=== PATIENT | female | born 1985 | race Caucasian/White ===

== ENCOUNTER 2017-11-03 18:23 | Emergency (ER) | payer MEDICAID ==
[2017-11-03 19:32] LABS: Urine Appearance Clear; Urine Blood Negative (Negative); Urine Color Yellow; Urine Ketones Negative (Negative); Urine Protein Negative (Negative); Urine Specific Gravity 1.026 (1.010-1.030); Urine Urobilinogen Negative (Negative)
[2017-11-03 19:37] LABS: ABS Basophils 0 10^3/ul (0-0.2); ABS Eosinophils 0.1 10^3/ul (0-0.6); ABS Lymphocytes 2.1 10^3/ul (1.0-4.8); ABS Monocytes 0.7 10^3/ul (0-0.8); ABS Neutrophils 6.3 10^3/ul (1.5-7.7); ABS Nucleated RBC 0 10^3/ul; Eosinophil % 0.9 % (0-6); Hematocrit 40 % (35-47); Hemoglobin 13.8 g/dl (12.0-16.0); Lymphocyte % 22.7 % (25-47); Mean Corpuscular HGB Conc 35 g/dl (31-36); Mean Corpuscular Hemoglobin 30 pg (27-31); Mean Corpuscular Volume 88 fL (80-97); Mean Platelet Volume 8.1 um3 (7.4-10.4); Nucleated Red Blood Cells % 0; Platelet Count 230 10^3/ul (150-450); Red Blood Count 4.56 10^6/ul (4.0-5.4); Red Cell Distribution Width 13 % (10.5-15); White Blood Count 9.2 10^3/ul (3.5-10.8)
[2017-11-03 19:53] LABS: EGFR Non-African American 78.1 (>60)
[2017-11-03] MEDS ORDERED: Zolpidem TAB* 10 MG PO ONE (20:43)
[2017-11-03] MEDS ORDERED: Cetirizine* 10 MG TAB PO SCH (22:00)
[2017-11-03] MEDS ORDERED: traZODone TAB* 100 MG PO SCH (22:00)
[2017-11-03] MEDS ORDERED: hydrOXYzine HCL TAB* 50 MG PO ONE (22:14)
[2017-11-03] MEDS ORDERED: clonazePAM TAB(*) 1 MG PO ONE (22:15)
--- NOTE | 2017-11-03 23:00 | ED ---
Christopher Montoya Nilda, scribed for Juan Acosta MD on 11/03/17 at 1923 . Psychiatric Complaint - HPI Summary HPI Summary: This patient is a 32 year old F presenting to [facility] accompanied by mother with a chief complaint of steadily worsening moderate rumila (racing thoughts, restlessness) for the past couple months. Symptoms aggravated by nothing and alleviated by medications (Resteril, Xanax XR, Vraylar, and Levocetirizine). Patient reports insomnia but denies SI and taking new risks. She states prior to medication treatment, she would spend a lot of money. Pt denies drug and ETOH use as well as previous hospitalization for psychiatric issues. She notes Klonopin was increased but has now been discontinued. Dr. Salazar is her psychiatrist who can be reached at [phone]. PMHx includes suicide attempt ( overdose on Ambien). - History Of Current Complaint Chief Complaint: EDMentalHealth Time Seen by Provider: 11/03/17 18:53 Hx Obtained From: Patient Onset/Duration: Sudden Onset, Lasting Weeks, Still Present Timing: Constant Severity Currently: Moderate Character: Manic Aggravating Factor(s): Nothing Alleviating Factor(s): Medication Associated Signs And Symptoms: Positive: Sleep Disturbance Related History: Positive For: Prior Psychiatric Issues Has Suicidal: Reports: Has Prior Attempt(s) Ingestion History: Type/Name Of Drug - Restoril, Klonopin, Xanax, and Vraylar - Allergies/Home Medications Allergies/Adverse Reactions: Allergies Allergy/AdvReac Type Severity Reaction Status Date / Time liothyronine [From Cytomel] Allergy Severe Anaphylatic Verified 11/03/17 18:45 Shock Home Medications: Home Medications Alprazolam XR (NF) [Xanax XR (NF)] 0.5 mg PO DAILY PRN 11/03/17 [History Confirmed 11/03/17] Cariprazine HCl [Vraylar] 3 mg PO DAILY 11/03/17 [History Confirmed 11/03/17] LevoCETirizine TAB (NF) [Xyzal TAB (NF)] 5 mg PO DAILY 11/03/17 [History Confirmed 11/03/17] Temazepam CAP* [Restoril CAP*] 15 mg PO BEDTIME 11/03/17 [History Confirmed 05/13] PMH/Surg Hx/FS Hx/Imm Hx Sensory History: Denies: Hx Legally Blind EENT History: Denies: Hx Deafness Psychiatric History: Reports: Hx Suicide Attempt Infectious Disease History: No Infectious Disease History: Denies: Traveled Outside the [place] in Last 30 Days - Family History Known Family History: Positive: Other - bipolar (aunt) - Social History Alcohol Use: None Hx Substance Use: No Hx Tobacco Use: No Review of Systems Negative: Fever, Chills Negative: Erythema Negative: Sore Throat Negative: Chest Pain Negative: Shortness Of Breath, Cough Negative: Abdominal Pain, Vomiting, Nausea Negative: dysuria, hematuria Negative: Myalgia, Edema Negative: Rash Neurological: Other - negative dizziness Psychological: Other - urmila (racing thoughts, restlessness), insomnia; negative SI, risk-taking All Other Systems Reviewed And Are Negative: Yes Physical Exam - Summary Physical Exam Summary: General: Well appearing, no distress Cardiovascular: Skin is well perfused Pulmonary: No respiratory distress, no tachypnea Abdomen: Non-distended Skin: Warm, pink, dry Psych: Normal affect Neuro: A&Ox3 Triage Information Reviewed: Yes Vital Signs On Initial Exam: Initial Vitals Temp Pulse Resp BP Pulse Ox 98.1 F 88 15 135/86 100 11/03/17 18:42 11/03/17 18:42 11/03/17 18:42 11/03/17 18:42 11/03/17 18:42 Vital Signs Reviewed: Yes Diagnostics - Vital Signs Vital Signs Temp Pulse Resp BP Pulse Ox 11/03/17 18:42 98.1 F 88 15 135/86 100 - Laboratory Result Diagrams: 11/03/17 19:28 11/03/17 19:28 Lab Statement: Any lab studies that have been ordered have been reviewed, and results considered in the medical decision making process. - EKG 2046 Cardiac Rate: NL - 83 bpm EKG Rhythm: Sinus Rhythm EKG Interpretation: no STEMI Course/Dx - Course Assessment/Plan: This patient is a 32 year old F presenting to [facility] accompanied by mother with a chief complaint of steadily worsening moderate urmila (racing thoughts, restlessness) for the past couple months. Symptoms aggravated by nothing and alleviated by medications (Resteril, Xanax XR, Vraylar , and Levocetirizine). Patient reports insomnia but denies SI and taking new risks. She states prior to medication treatment, she would spend a lot of money. Pt denies drug and ETOH use as well as previous hospitalization for psychiatric issues. She notes Klonopin was increased but has now been discontinued. Dr. Salazar is her psychiatrist who can be reached at [phone]. PMHx includes suicide attempt (overdose on Ambien). An EKG reveals NSR, 83 bpm , no STEMI. [1940] Pt is medically cleared for [facility]. Pt will be s/o to Dr. Gomez, pending dispo, awaiting [facility]. Dx. Anxiety. - Differential Dx/Clinical Impression Provider Diagnosis: Anxiety Discharge - Sign-Out/Discharge Documenting (check all that apply): Sign-Out Patient Signing out patient TO: Riley Gomez - s/o pending dispo, awaiting [facility]. - Discharge Plan Condition: Stable Discharge Disposition Comment: Pt will be s/o to Dr. Gomez, pending dispo, awaiting [facility]. Referrals: No Primary Care Phys,NOPCP [Primary Care Provider] - The documentation as recorded by the Christopher manzo Nilda accurately reflects the service I personally performed and the decisions made by me, Juan Acosta MD.
--- NOTE | 2017-11-04 09:00 | PN ---
ED Flex Patient Progress Note Date of Service: 11/04/17 Subjective: This is a 32 year-old F who is pending transfer to another psychiatric facility secondary to urmila. Pt states she feels anxious at this time. Objective: Vitals: Most recent vital signs documented below. General NAD, Alert and oriented x3. Heart: rrr at 80 bpm Lungs: CTA or with rales, rhonchi, wheezing abd: soft nontender Laboratory: Current laboratory results documented below. Assessment: urmila Plan: Pending psychiatric to transfer will follow up daily until accepted at facility Condition:Stable disposition: transfer Vital Signs Temp Pulse Resp BP Pulse Ox 98.8 F 92 18 137/85 98 11/03/17 19:35 11/03/17 19:35 11/03/17 19:35 11/03/17 19:35 11/03/17 19:35 Lab Results - Entire Visit 11/03/17 11/03/17 11/03/17 19:28 19:28 19:05 WBC 9.2 RBC 4.56 Hgb 13.8 Hct 40 MCV 88 MCH 30 MCHC 35 RDW 13 Plt Count 230 MPV 8.1 Neut % (Auto) 68.6 Lymph % (Auto) 22.7 L Dare % (Auto) 7.4 H Eos % (Auto) 0.9 Baso % (Auto) 0.4 Absolute Neuts (auto) 6.3 Absolute Lymphs (auto) 2.1 Absolute Monos (auto) 0.7 Absolute Eos (auto) 0.1 Absolute Basos (auto) 0 Absolute Nucleated RBC 0 Nucleated RBC % 0 Sodium 141 Potassium 3.9 Chloride 110 Carbon Dioxide 24 Anion Gap 7 BUN 10 Creatinine 0.84 Est GFR ( Amer) 100.4 Est GFR (Non-Af Amer) 78.1 BUN/Creatinine Ratio 11.9 Glucose 87 Calcium 8.6 Total Bilirubin 0.40 AST 16 ALT 20 Alkaline Phosphatase 82 Total Protein 6.4 Albumin 3.8 Globulin 2.6 Albumin/Globulin Ratio 1.5 TSH 1.08 Beta HCG, Quant < 0.60 Urine Color Yellow Urine Appearance Clear Urine pH 5.0 Ur Specific [place] 1.026 Urine Protein Negative Urine Ketones Negative Urine Blood Negative Urine Nitrate Negative Urine Bilirubin Negative Urine Urobilinogen Negative Ur Leukocyte Esterase Negative Urine Glucose Negative Urine Ascorbic Acid * A Salicylates < 2.50 Urine Opiates Screen Acetaminophen < 15 Ur Barbiturates Screen Ur Phencyclidine Scrn Ur Amphetamines Screen U Benzodiazepines Scrn Urine Cocaine Screen U Cannabinoids Screen Serum Alcohol < 10 11/03/17 19:05 WBC RBC Hgb Hct MCV MCH MCHC RDW Plt Count MPV Neut % (Auto) Lymph % (Auto) Dare % (Auto) Eos % (Auto) Baso % (Auto) Absolute Neuts (auto) Absolute Lymphs (auto) Absolute Monos (auto) Absolute Eos (auto) Absolute Basos (auto) Absolute Nucleated RBC Nucleated RBC % Sodium Potassium Chloride Carbon Dioxide Anion Gap BUN Creatinine Est GFR ( Amer) Est GFR (Non-Af Amer) BUN/Creatinine Ratio Glucose Calcium Total Bilirubin AST ALT Alkaline Phosphatase Total Protein Albumin Globulin Albumin/Globulin Ratio TSH Beta HCG, Quant Urine Color Urine Appearance Urine pH Ur Specific [place] Urine Protein Urine Ketones Urine Blood Urine Nitrate Urine Bilirubin Urine Urobilinogen Ur Leukocyte Esterase Urine Glucose Urine Ascorbic Acid Salicylates Urine Opiates Screen None detected Acetaminophen Ur Barbiturates Screen None detected Ur Phencyclidine Scrn None detected Ur Amphetamines Screen None detected U Benzodiazepines Scrn Presumptive positive A Urine Cocaine Screen None detected U Cannabinoids Screen None detected Serum Alcohol
[2017-11-04 12:57] VITALS: BP 141/78
[2017-11-04] MEDS ORDERED: ALPRAZolam TAB* 0.5 MG PO ONE (13:32)
== END 2017-11-04 14:10 ==
LOC: ED 18:23
DX: F41.9 Anxiety disorder, unspecified (principal); G47.9 Sleep disorder, unspecified
CPT/HCPCS: 36415; 80053; 80307; 80320; 80329; 81003; 84443; 84702; 85025; 93005; 99283; A9270-GY; G0480